=== PATIENT | female | born 1975 | race Two or more races ===

== ENCOUNTER 2025-07-04 17:58 | Emergency (ER) | payer OTHER ==
[~2025-07-04] VITALS: Ht 162.6 cm; Wt 52.2 kg
[2025-07-04 18:18] VITALS: BP 118/78
[2025-07-04] MEDS ORDERED: CEFTRIAXONE /D5W 50ML IVPB **ER PYXIS IV ONE (19:17)
[2025-07-04] MEDS ORDERED: RABIES VACCINE (PCEC)/PF 2.5 UNIT ML IM ONE (19:17)
[2025-07-04] MEDS ORDERED: CLINDAMYCIN 600 MG PIGGYBACK**ER OMNI IV ONE (19:17)
[2025-07-04] MEDS: CLINDAMYCIN PHOSPHATE IV 600 MG in IV DEXTROSE 5% 100 ML IV ONE (19:26)
[2025-07-04] MEDS: RABIES VACCINE (PCEC)/PF 2.5 UNIT ML IM ONE (19:29)
[2025-07-04 19:32] LABS: PLATELET COUNT (AUTO) 369 K/uL (179-408); RED BLOOD CELL COUNT(AUTO) 4.19 MIL/uL (3.63-4.92); RED CELL DISTRIBUTION WIDTH 13.5 % (12.3-17.7); WHITE BLOOD COUNT (AUTO) 8.6 K/uL (3.8-11.8)
[2025-07-04 19:38] LABS: CREATININE 0.5 mg/dL (0.6-1.3); SODIUM SERUM 141 mmol/L (136-145); UREA NITROGEN, BLOOD 18 mg/dL (7-18)
[2025-07-04 19:43] LABS: ASPARTATE AMINOTRANSFERASE 20 U/L (15-37); TOTAL PROTEIN, SERUM 6.8 g/dL (6.4-8.2)
[2025-07-04] MEDS ORDERED: KETOROLAC TROMETHAMINE 30 MG INJ ONE (20:51)
[2025-07-04] MEDS: KETOROLAC TROMETHAMINE 30 MG INJ IVP ONE ×2 (20:54→21:32)
[2025-07-04] MEDS ORDERED: DOXY100C5 PO (21:23)
[2025-07-04] MEDS ORDERED: IBUP-1953 PO (22:14)
[2025-07-04] MEDS ORDERED: ACET-3102 PO (22:14)
[2025-07-04 22:28] VITALS: BP 118/78; O2SAT 97
== END 2025-07-04 22:25 | disposition home or self-care (01) ==
LOC: ER 18:15
DX: S80.811A Abrasion, right lower leg, initial encounter (principal); F17.200 Nicotine dependence, unspecified, uncomplicated; F12.90 Cannabis use, unspecified, uncomplicated; Z59.00 Homelessness unspecified; Z23 Encounter for immunization; W54.0XXA Bitten by dog, initial encounter; Y93.89 Activity, other specified; Y92.89 Other specified places as the place of occurrence of the external cause; Y99.9 Unspecified external cause status
CPT/HCPCS: 36415; 73551; 83605; 85025; 87040; A4606; A4663; J0696; J1885; J3490

== ENCOUNTER 2025-07-23 21:27 | Emergency (ER) | payer OTHER ==
[~2025-07-23] VITALS: Ht 165.1 cm; Wt 59.0 kg
[~2025-07-23 21:27] MED LIST: ACET-3102 PO; DOXY100C5 PO; IBUP-1953 PO
[2025-07-23 21:29] VITALS: BP 126/75
[2025-07-23] MEDS ORDERED: SULF1TAB48 PO (22:00)
[2025-07-23] MEDS ORDERED: SULFAMETH/TRIMETH 800/160 MG TABLET ONE (22:02)
[2025-07-23] MEDS: SULFAMETH/TRIMETH 800/160 MG TABLET PO ONE (22:04)
[2025-07-23 22:05] VITALS: BP 126/75; O2SAT 100
== END 2025-07-23 22:05 | disposition home or self-care (01) ==
LOC: ER 21:30
DX: S71.111D Laceration without foreign body, right thigh, subsequent encounter (principal); F12.90 Cannabis use, unspecified, uncomplicated; Z48.02 Encounter for removal of sutures; Z88.7 Allergy status to serum and vaccine; Z60.2 Problems related to living alone; W54.0XXD Bitten by dog, subsequent encounter
CPT/HCPCS: A4606; A4663